=== PATIENT | female | born 1955 | race Caucasian/White ===

== ENCOUNTER 2023-09-23 17:24 | Emergency (ER) | payer BC ==
[~2023-09-23] VITALS: Ht 160 cm; Wt 95.5 kg
[2023-09-23 20:17] LABS: ALANINE AMINOTRANSFERASE 10 U/L (12-78); ALBUMIN 2.7 G/DL (3.4-5.0); ALBUMIN/GLOBULIN RATIO 0.7 (1.1-1.5); ALKALINE PHOSPHATASE 176 IU/L (46-116); ANION GAP 9 (8-16); ASPARTATE AMINO TRANSFERASE 15 U/L (10-37); BILIRUBIN,TOTAL 0.4 MG/DL (0.1-1.0); BLOOD UREA NITROGEN 8 MG/DL (7-18); BUN/CREATININE RATIO 12.5 (10.0-20.0); CALCIUM 9.1 MG/DL (8.5-10.1); CHLORIDE 99 MMOL/L (99-107); CREATININE 0.64 MG/DL (0.40-0.90); GLUCOSE 117 MG/DL (70-104); POTASSIUM 3.6 MMOL/L (3.5-5.1); SODIUM 134 MMOL/L (135-145); TOTAL CARBON DIOXIDE 26.1 MMOL/L (24-32); TOTAL PROTEIN 6.5 G/DL (6.4-8.2); eCRCL 71 ML/MIN; eGFR > 90 ML/MIN
[2023-09-23 20:31] LABS: BASOPHILS % (AUTO) 0.2 % (0-1); EOSINOPHILS % (AUTO) 0.1 % (0-6); HEMATOCRIT 31.9 % (35.0-45.0); LYMPHOCYTES # (AUTO) 0.8 X10'3 (1.1-4.8); LYMPHOCYTES % (AUTO) 3.8 % (21-51); MEAN CORPUSCULAR HEMOGLOBIN 25.4 PG (27.0-31.0); MEAN CORPUSCULAR HGB CONC 31.4 g/dL (33.0-36.5); MEAN CORPUSCULAR VOLUME 80.7 FL (78-98); MEAN PLATELET VOLUME 7.5 FL (7.4-10.4); MONOCYTES # (AUTO) 1.1 X10'3 (0-0.9); MONOCYTES % (AUTO) 5.6 % (2-12); NEUTROPHILS # (AUTO) 17.9 X10'3 (1.8-7.7); NEUTROPHILS % (AUTO) 90.3 % (42-75); PLATELET COUNT 369 X10'3 (140-440); RED BLOOD COUNT 3.96 X10'6 (4.20-5.60); RED CELL DISTRIBUTION WIDTH 17.9 % (11.5-14.5); WHITE BLOOD COUNT 19.8 X10'3 (4.5-11.0)
[2023-09-23] MEDS ORDERED: vancomycin/NS 1 GM ADD-VANTAGE 250 ML IV SCH (23:00)
[2023-09-23] MEDS ORDERED: oxyCODONE IR 5mg (immed. release) tablet PO ONE (23:05)
[2023-09-24] MEDS ORDERED: piperacillin/tazo 3.375gm/50ml 50 ML IV SCH
[2023-09-24] MEDS ORDERED: acetaminophen 1,000mg/100ml IV 100 ML IV STA (03:03)
[2023-09-24] MEDS ORDERED: ondansetron/PF 4mg/2ml inj IV ONE ×4 (03:05→20:35)
[2023-09-24] MEDS ORDERED: piperacillin/tazo 3.375gm/50ml 50 ML IV ONE ×2 (06:55→11:00)
[2023-09-24] MEDS ORDERED: vancomycin/NS 1 GM ADD-VANTAGE 250 ML IV ONE (06:55)
[2023-09-24] MEDS ORDERED: morphine 4 MG/ML inj SYRINge IV ONE ×2 (07:35→20:35)
[2023-09-24] MEDS ORDERED: acetaminophen 325mg tablet PO ONE (07:35)
[2023-09-24] MEDS ORDERED: ketorolac tromethamine 15mg/ml inj. IV ONE (07:35)
[2023-09-24] MEDS ORDERED: ketorolac trometh. 30mg/ml inj. IV ONE (07:35)
[2023-09-24 11:56] LABS: BILIRUBIN,URINE SMALL (Neg); CLARITY,URINE SLIGHTLY CLOUDY (Clear); COLOR,URINE YELLOW (Yellow); GLUCOSE, URINE NEGATIVE (Neg); KETONES,URINE 40 mg/dl (Neg); LEUKOCYTE ESTERASE ,URINE NEGATIVE (Neg); NITRITES, URINE NEGATIVE (Neg); OCCULT BLOOD,URINE SMALL (Neg); PH,URINE 6.5 (4.8-8.0); PROTEIN,URINE TRACE mg/dl (Neg); UROBILINOGEN,URINE 0.2 E.U/dL (0.2-1.0)
[2023-09-24 11:57] LABS: UA COLLECTION TYPE STRAIGHT CATH
[2023-09-24 12:10] LABS: SQUAMOUS EPITHELIAL CELL,UR MODERATE /LPF (FEW)
[2023-09-24 12:11] LABS: MUCUS STRANDS MANY /LPF (Neg)
[2023-09-24 12:12] LABS: TRANSITIONAL EPI CELLS,URINE FEW /HPF; WBC,URINE 0-4 /HPF (0-4)
[2023-09-24 12:13] LABS: BACTERIA,URINE FEW /HPF (Neg)
[2023-09-24] MEDS ORDERED: acetaminophen 1,000mg/100ml IV 100 ML IV ONE (23:55)
[2023-09-25] MEDS ORDERED: ondansetron/PF 4mg/2ml inj IV ONE ×2 (03:20→06:50)
[2023-09-25] MEDS ORDERED: oxyCODONE IR 5mg (immed. release) tablet PO ONE (03:20)
[2023-09-25] MEDS ORDERED: mag hydrox/Alum hydrox/simeth 30ml oral suspension PO ONE (05:40)
[2023-09-25] MEDS ORDERED: LIDOcaine Viscous 15ml cup MM ONE ×2 (05:40→07:25)
[2023-09-25] MEDS ORDERED: ketorolac trometh. 30mg/ml inj. IV ONE (06:50)
[2023-09-25] MEDS ORDERED: HYDROmorphone 1 mg/ml syringe IV ONE (06:50)
[2023-09-25] MEDS ORDERED: piperacillin/tazo 3.375gm/50ml 50 ML IV ONE (07:10)
[2023-09-25] MEDS ORDERED: vancomycin/NS 1 GM ADD-VANTAGE 250 ML X 1 DOSE IV ONE (07:15)
[2023-09-25] MEDS: morphine 2 MG/ML inj. syringe IV PRN ×3 (13:35→21:48)
[2023-09-25] MEDS: ondansetron/PF 4mg/2ml inj IV PRN ×2 (13:42→18:11)
[2023-09-25] MEDS ORDERED: piperacillin/tazo 3.375gm/50ml 50 ML IV SCH ×2 (15:00→16:00)
[2023-09-25] MEDS ORDERED: normal saline 1000ml 1,000 ML IV SCH (15:45)
[2023-09-25] MEDS ORDERED: vancomycin/NS 1 GM ADD-VANTAGE 250 ML IV SCH (19:00)
[2023-09-25 20:00] LABS: BASOPHILS % (AUTO) 0.6 % (0-1); EOSINOPHILS # (AUTO) 0.2 X10'3 (0-0.9); EOSINOPHILS % (AUTO) 3.2 % (0-6); HEMATOCRIT 27.3 % (35.0-45.0); HEMOGLOBIN 8.9 g/dl (12.0-16.0); LYMPHOCYTES # (AUTO) 0.6 X10'3 (1.1-4.8); LYMPHOCYTES % (AUTO) 12.1 % (21-51); MEAN CORPUSCULAR HEMOGLOBIN 26.2 PG (27.0-31.0); MEAN CORPUSCULAR HGB CONC 32.6 g/dL (33.0-36.5); MEAN CORPUSCULAR VOLUME 80.2 FL (78-98); MEAN PLATELET VOLUME 7.3 FL (7.4-10.4); MONOCYTES # (AUTO) 0.5 X10'3 (0-0.9); MONOCYTES % (AUTO) 9.6 % (2-12); NEUTROPHILS # (AUTO) 3.8 X10'3 (1.8-7.7); NEUTROPHILS % (AUTO) 74.5 % (42-75); PLATELET COUNT 334 X10'3 (140-440); RED BLOOD COUNT 3.41 X10'6 (4.20-5.60); RED CELL DISTRIBUTION WIDTH 17.6 % (11.5-14.5); WHITE BLOOD COUNT 5.1 X10'3 (4.5-11.0)
[2023-09-25 20:24] LABS: ALANINE AMINOTRANSFERASE 17 U/L (12-78); ALBUMIN 2.3 G/DL (3.4-5.0); ALBUMIN/GLOBULIN RATIO 0.7 (1.1-1.5); ALKALINE PHOSPHATASE 108 IU/L (46-116); ANION GAP 11 (8-16); ASPARTATE AMINO TRANSFERASE 35 U/L (10-37); BILIRUBIN,TOTAL 0.3 MG/DL (0.1-1.0); BLOOD UREA NITROGEN 5 MG/DL (7-18); BUN/CREATININE RATIO 6.9 (10.0-20.0); CALCIUM 8.4 MG/DL (8.5-10.1); CHLORIDE 102 MMOL/L (99-107); CREATININE 0.72 MG/DL (0.40-0.90); GLUCOSE 101 MG/DL (70-104); POTASSIUM 3.2 MMOL/L (3.5-5.1); SODIUM 139 MMOL/L (135-145); TOTAL CARBON DIOXIDE 26.3 MMOL/L (24-32); TOTAL PROTEIN 5.8 G/DL (6.4-8.2); eCRCL 63 ML/MIN; eGFR 81 ML/MIN
[2023-09-25 22:54] VITALS: BP 128/65; PULSE 80; RESP 16; TEMP 99.1; O2SAT 95
[2023-09-26] MEDS ORDERED: VANCOMYCIN LEVEL IV ONE (18:30)
== END 2023-09-25 22:10 | disposition short-term general hospital (02) ==
LOC: ER 17:26
DX: T81.49XA Infection following a procedure, other surgical site, initial encounter (principal); B99.8 Other infectious disease; Z88.2 Allergy status to sulfonamides
CPT/HCPCS: 36415; 71045; 72125; 72128; 72131; 80053; 81001; 83605; 84145; 85025; 87040; 96361; 96365; 96366; 96367; 96375; 96376; 99285; J0131; J1885; J2270; J2405; J2543; J3370; J7030; A6449